=== PATIENT | female | born 1935 | race Hispanic/Latino ===

== ENCOUNTER 2016-12-03 14:07 | Outpatient (CLI) | payer MEDICARE ==
--- NOTE | 2016-12-03 14:44 | XRay Report ---
Bilateral hips with pelvis: Bilateral hip pain. 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 There is good positioning of the acetabular and femoral components. No evidence of loosening early complication. There is severe narrowing of the medial and superomedial joint space of the left hip. Diffuse subchondral erosions are present in the femoral head within the inferior bone spur of the femoral head. Small lateral spurs are also noted from the acetabulum and femoral head. The bones appear generally well mineralized. There are minimal inferior spurs of the SI joints but the joint spaces and articular margins are otherwise unremarkable. Impression: 1. 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 2. Right hip replacement with no complications noted.
== END 2016-12-03 14:08 | disposition home or self-care (01) ==
LOC: SPVIMAG 14:07
PROVIDERS: ATTEND Orthopaedic Surgery Sports Medicine
DX: M16.12 Unilateral primary osteoarthritis, left hip (principal); M25.551 Pain in right hip; Z96.641 Presence of right artificial hip joint
CPT/HCPCS: 73521